=== PATIENT | female | born 1960 | race Caucasian/White ===

== ENCOUNTER 2018-09-12 16:24 | Emergency (ER) | payer BC ==
[~2018-09-12] VITALS: Ht 160 cm; Wt 47.6 kg
--- NOTE | 2018-09-12 16:35 | NUR ---
Dr meyer at the bedside for MSE.
[2018-09-12] MEDS ORDERED: TDAP DIPH,PERTUSS,TET VAC/PF 0.5 ML DISP.SYRIN IM ONE ×2 (16:45→16:49)
--- NOTE | 2018-09-12 16:56 | NUR ---
Pt out of ER for ct.
--- NOTE | 2018-09-12 17:21 | NUR ---
Cleaned and dressed abrasions sites. Pt tolorated well.
[2018-09-12 17:36] VITALS: BP 130/77
--- NOTE | 2018-09-12 17:38 | NUR ---
Patient discharged to home in stable conditon. Written and verbal after care instructions given. Patient verbalizes understanding of instructions.
== END 2018-09-12 17:38 | disposition home or self-care (01) ==
LOC: ER 16:24
DX: S00.83XA Contusion of other part of head, initial encounter (principal); M25.522 Pain in left elbow; M25.532 Pain in left wrist; F17.200 Nicotine dependence, unspecified, uncomplicated; Z88.8 Allergy status to other drugs, medicaments and biological substances; V29.9XXA Motorcycle rider (driver) (passenger) injured in unspecified traffic accident, initial encounter; Y93.89 Activity, other specified; Y92.89 Other specified places as the place of occurrence of the external cause; Y99.8 Other external cause status
CPT/HCPCS: 70450; 73080; 73110; 90715; A4663